=== PATIENT | male | born 1950 | race Caucasian/White ===

== ENCOUNTER 2022-03-25 06:09 | Emergency (ER) | payer MEDICARE, BC ==
[~2022-03-25] VITALS: Ht 177.8 cm; Wt 75.3 kg
[2022-03-25] MEDS ORDERED: METO1TAB32 PO (06:22)
[2022-03-25] MEDS ORDERED: ENTR1TAB PO (06:22)
[2022-03-25] MEDS ORDERED: LIDOCAINE 2% 5ML JELLY UROJET TOP ONE (06:40)
[2022-03-25 07:45] LABS: BASO % 0.5 % (0.0-1.0); EOS # 0.1 10^3/uL (0.0-0.5); EOS % 1.7 % (0.0-3.0); HEMATOCRIT 38.4 % (42.0-52.0); HEMOGLOBIN 12.2 g/dl (13.5-17.5); LYMPH # 1.8 10^3/uL (1.5-5.0); MEAN CORPUSCULAR HEMOGLOBIN 28.9 pg (27.0-33.0); MEAN CORPUSCULAR HGB CONC 31.8 g/dl (32.0-36.5); MONO # 0.6 10^3/uL (0.0-0.8); MONO % 9.7 % (2.0-8.0); NEUTROPHILS # 3.9 10^3/uL (1.5-8.5); NEUTROPHILS % 59.6 % (36.0-66.0); PLATELET COUNT, AUTOMATED 197 10^3/uL (150-450); RED BLOOD COUNT 4.22 10^6/uL (4.30-6.10); WHITE BLOOD COUNT 6.6 10^3/uL (4.0-10.0)
[2022-03-25 08:06] LABS: RBC, URINE 30-40 /hpf (0-3)
[2022-03-25 08:07] LABS: BACTERIA, URINE LARGE AMOUNT; HYALINE CAST, URINE NONE SEEN /lpf (0-1); SQUAMOUS EPITHELIAL CELL URINE NONE SEEN /hpf (SMALL AMT)
[2022-03-25 08:10] LABS: BLOOD UREA NITROGEN 28 MG/DL (7-18); CARBON DIOXIDE LEVEL 17 MEQ/L (21-32); CHLORIDE LEVEL 111 MEQ/L (98-107); CREATININE FOR GFR 0.86 MG/DL (0.70-1.30); GLOMERULAR FILTRATION RATE > 60.0 (>42); GLUCOSE, FASTING 111 MG/DL (70-100); POTASSIUM SERUM 5.7 MEQ/L (3.5-5.1); SODIUM LEVEL 136 MEQ/L (136-145)
[2022-03-25] MEDS ORDERED: NS 500 ML IV ONE (08:20)
[2022-03-25] MEDS ORDERED: CIPR-249 PO (08:53)
[2022-03-25] MEDS ORDERED: CIPROFLOXACIN 500MG TABLET PO ONE (08:55)
[2022-03-25 09:45] VITALS: BP 128/70
== END 2022-03-25 10:10 | disposition home or self-care (01) ==
LOC: M ED 06:09
DX: N39.0 Urinary tract infection, site not specified (principal); E86.0 Dehydration; I50.9 Heart failure, unspecified; N40.1 Benign prostatic hyperplasia with lower urinary tract symptoms; Z95.1 Presence of aortocoronary bypass graft; Z87.891 Personal history of nicotine dependence; Z88.8 Allergy status to other drugs, medicaments and biological substances